=== PATIENT | female | born 1965 | race Hispanic/Latino ===

== ENCOUNTER 2017-11-11 21:11 | Emergency (ER) | payer OTHER ==
[~2017-11-11] VITALS: Ht 160 cm; Wt 63.5 kg
[~2017-11-11 21:11] MED LIST: ALBUTEROL2.5 MG/3 M INH/SOL; ALPRAZOLAM0.25 M1 PO; MIRENA1 EACH; PROAIR HFA8.5 GM INH; VITAMIN D1000 UNIT PO
--- NOTE | 2017-11-11 23:22 | ED GI/GU/ABDOMINAL COMPLAINT ---
History of Present Illness General Chief Complaint: Female Urogenital Problems Stated Complaint: PT HAS A UTI Source: patient Exam Limitations: no limitations Vital Signs & Intake/Output Vital Signs & Intake/Output Vital Signs Date Time Temp Pulse Resp B/P B/P Pulse O2 O2 Flow FiO2 Mean Ox Delivery Rate 11/11 2346 97.5 70 16 122/68 100 Room Air 11/11 2132 96.0 86 16 134/82 99 Room Air Room Air ED Intake and Output 11/12 0000 11/11 1200 Intake Total Output Total Balance Patient 140 lb Weight Allergies Coded Allergies: aspirin (SEVERE STOMACH ACHES AND HIVES 11/11/17) sulfamethoxazole (From BACTRIM) (HIVES 11/11/17) trimethoprim (From BACTRIM) (HIVES 11/11/17) Reconcile Medications Albuterol Sulfate (Proair Hfa) 90 MCG HFA.AER.AD 2 PUF INH AD PRN ASTHMA ( Reported) Albuterol Sulfate 2.5 MG/3 ML (0.083 %) VIAL.NEB 1 Vial INH/SANDRITA AD PRN ASTHMA (Reported) Alprazolam 0.25 MG TABLET 1 TAB PO QPM ANXIETY/SLEEP (Reported) Amoxicillin 500 MG TABLET 1 TAB PO BID PRN SINUSITIS/UTI Benzonatate (Tessalon Perle) 100 MG CAPSULE 1 CAP PO TID PRN COUGH Cholecalciferol (Vitamin D3) (Vitamin D) (Unknown Strength) TABLET (Unknown Dose) PO DAILY SUPPLEMENT (Reported) Fluticasone Propionate (Flonase Allergy Relief) 50 MCG/ACTUATION SPRAY.SUSP 2 SPRAY SADIA DAILY CONGESTION Levonorgestrel (Mirena) 20 MCG/24 HOUR (5 YEARS) IUD CONTROL (Reported) Triage Note: PT TO TRIAGE FOR A FEELING OF A FULL BLADDER AND FREQUENT URINATION, CHILLS AT NIGHT. DENIES CHANGE IN ODOR, STATES URINE HAS BEEN DARK. PT ALSO COMPLAINING OF SINUS PAIN PT HAS BEEN TAKING ABX FOR SINUS INFECTION WITHOUT RELEIF Triage Nurses Notes Reviewed? yes ? N Is pt currently ? No Onset: Gradual Duration: constant Timing: recent history Quality/Severity: fullness, mild Severity Numbers: 3 HPI: Patient is a 52-year-old female who presents with parents with concerns of a 3 day history of cough and nasal congestion sinus pressure headaches and increased frequency of urination and concerns of urinary tract infection. Patient denies any chest pain or jaw pain nausea vomiting dysuria or hematuria Patient can tolerate by mouth with no change in symptoms (Roly Mock) Past History Travel History Traveled to [place] past 21 day No Medical History Any Pertinent Medical History? 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 No (Roly Mock) Review of Systems Review of Systems Constitutional: Reports: no symptoms. EENTM: Reports: see HPI, nasal congestion. Respiratory: Reports: see HPI, cough. Cardiovascular: Reports: no symptoms. GI: Reports: see HPI. Denies: abdominal pain. Genitourinary: Reports: see HPI, frequency. Denies: discharge, dysuria. Musculoskeletal: Reports: no symptoms. Skin: Reports: no symptoms. Neurological/Psychological: Reports: no symptoms. Hematologic/Endocrine: Reports: no symptoms. Immunologic/Allergic: Reports: no symptoms. All Other Systems: Reviewed and Negative (Roly Mock) Physical Exam Physical Exam General Appearance: no apparent distress, alert, comfortable Head: atraumatic Eyes: Bilateral: normal appearance, PERRL, EOMI. Ears, Nose, Throat, Mouth: moist mucous membrane, Tympanic normal, NASAL CONGESTION NONTENDER SINUS Neck: normal inspection, supple Respiratory: normal breath sounds, chest non-tender, no respiratory distress Cardiovascular: regular rate/rhythm Gastrointestinal: normal bowel sounds, soft, non-tender Extremities: normal range of motion Neurologic/Psych: no motor/sensory deficits, awake Skin: intact Comments: NO CVA TENDERNESS Core Measures ACS in differential dx? No Sepsis Present: No Sepsis Focused Exam Completed? No (Roly Mock) Progress Differential Diagnosis: AAA, AMI, appendicitis, biliary colic, bowel obstruction , colon cancer, cholecystitis, diverticulitis, endometritis, esophageal varices, gastritis, hepatitis, hernia, hemorrhoids, ischemic bowel, inflamm bowel dis, kidney stone, ovarian cyst, ovarian torsion, pancreatitis, PID/cervicitis, peptic ulcer, PUD/GERD, perforated viscous, SBO, UTI/pyelo Plan of Care: Orders Procedure Date/time Status CULTURE,URINE 11/11 2122 Active URINALYSIS 11/11 2122 Complete Laboratory Tests 11/11/172143: Urine Color YEL, Urine Clarity CLEAR, Urine pH 5.5, Ur Specific Shirley >= 1.030 , Urine Protein TRACE H, Urine Ketones NEG, Urine Nitrite NEG, Urine Bilirubin NEG, Urine Urobilinogen 0.2, Ur Leukocyte Esterase NEG, Ur Microscopic SEDIMENT EXAMINED, Urine RBC 1-3, Urine WBC 1-3 H, Ur Epithelial Cells FEW, Urine Bacteria FEW H, Urine Mucus MOD H, Urine Hemoglobin SMALL H, Urine Glucose NEG Microbiology 11/12 2143 URINE ROUT: Urine Culture - RECD Patient upon initial examination was resting comfortably bedside no apparent distress nontender abdomen afebrile urinalysis was nonspecific and possibly unremarkable however urine culture was obtained patient will be prescribed amoxicillin for consideration of a urine infection or sinusitis. Patient had no peritoneal signs no concern at this time upon discharge of appendicitis Initial ED EKG: none (Roly Mock) Departure Departure Disposition: HOME OR SELF CARE Condition: Stable Clinical Impression Primary Impression: Sinusitis Secondary Impressions: UTI (urinary tract infection) Referrals: Livier LIMON,Aby Radford (PCP/Family) Additional Instructions: As discussed in the prescription of Tessalon Perles for cough amoxicillin for symptoms for the full course and Flonase for congestion, PRESCRIPTIONS waiting at [facility]. If symptoms worsen return to emergency if no better in 2 days FOLLOW UP WITH primary care doctor Departure Forms: Customer Survey General Discharge Information Prescriptions: Current Visit Scripts Amoxicillin 1 TAB PO BID PRN SINUSITIS/UTI #14 TAB Fluticasone Propionate (Flonase Allergy Relief) 2 SPRAY SADIA DAILY #1 BOT Benzonatate (Tessalon Perle) 1 CAP PO TID PRN COUGH #21 CAP (Roly Mock) PA/AIR HOIST OPERATOR Co-Sign Statement Statement: ED Attending supervision documentation- [] I saw and evaluated the patient. I have also reviewed all the pertinent lab results and diagnostic results. I agree with the findings and the plan of care as documented in the PA's/AIR HOIST OPERATOR's documentation. [x] I have reviewed the ED Record and agree with the PA's/AIR HOIST OPERATOR's documentation. [] Additions or exceptions (if any) to the PAs/AIR HOIST OPERATOR's note and plan are summarized below: [] (Sonya LIMON,Joce Gann)
[2017-11-11] MEDS ORDERED: FLONASE ALLERG9.9 ML NAS (23:24)
[2017-11-11] MEDS ORDERED: AMOXICILLIN500 M3 PO (23:24)
[2017-11-11] MEDS ORDERED: TESSALON PERLE100 M1 PO (23:24)
[2017-11-11 23:46] VITALS: BP 122/68
== END 2017-11-11 23:48 ==
LOC: ERH 21:11
DX: J32.9 Chronic sinusitis, unspecified (principal); N39.0 Urinary tract infection, site not specified
CPT/HCPCS: 81001; 87086